=== PATIENT | male | born 1955 | race Caucasian/White ===

== ENCOUNTER → 2020-01-06 12:11 | Outpatient (CLI) | payer MEDICARE, OTHER, SELFPAY ==
--- NOTE | 2020-01-06 | DI.RAD.S_ITS ---
PROCEDURE: XR CHEST 2V INDICATIONS: COUGH TECHNIQUE: 2 views of the chest were acquired. COMPARISON: [facility], CT, SOFT TISSUE NECK W CONTRAST, 05/31/2017, 9:13. [facility], CR, CHEST 2 VIEW, 01/23/2012, 8:56. FINDINGS: Surgical changes and devices: None. Lungs and pleura: Nodular opacities are seen within the mid left lung, which measured 4.5 cm, when measured together. Low lung volumes are noted. This causes a crowded appearance to the lung markings and limits evaluation. No pneumothorax or pleural effusions are seen. Mediastinum: The fullness can be seen involving the right mediastinum. No mediastinal contours are otherwise unremarkable. The cardiac size is within normal limits. Bones and chest wall: No suspicious bony abnormalities. Age-appropriate bony degenerative changes are seen. Soft tissues appear unremarkable. IMPRESSION: Nodular opacities are seen along. In a patient of this age, concern is raised for neoplasm. A dedicated chest CT with contrast is now recommended for further evaluation. Fullness is seen involving the right mediastinum, which most likely relates to normal vascular structures. However, differential diagnosis would also include metastatic disease. Dictated by: Paras Gibbs M.D. on 01/06/2020 at 11:45 Approved by: Paras Gibbs M.D. on 01/06/2020 at 11:49
[2020-01-06 13:24] LABS: Add Manual Diff / Slide Review NO; Basophils Absolute Auto 100 /uL (0-100); Basophils Percent Auto 0.7 % (0-2); Eosinophils Absolute Auto 300 /uL (0-450); Eosinophils Percent Auto 3.1 % (2-4); Hematocrit 37.7 % (41-53); Lymphocytes Absolute Auto 800 /uL (1100-4500); Lymphocytes Percent Auto 9.9 % (25-40); Mean Corpuscular HGB Conc 34.6 % (30-36); Mean Corpuscular Hemoglobin 30.3 PG (26-34); Mean Corpuscular Volume 87.5 fL (80-100); Monocytes Absolute Auto 900 /uL (0-900); Monocytes Percent Auto 10.6 % (3-14); Neutrophils Absolute Auto 6200 /uL (1500-7000); Neutrophils Percent Auto 75.7 % (50-75); Platelet Count 344 X10^3/uL (150-400); Red Blood Cell Count 4.31 X10^6/uL (4.5-5.9); Red Cell Distribution Width 12.4 % (11.6-14.8); White Blood Cell Count 8.2 X10^3/uL (4.5-11.0)
[2020-01-06 13:43] LABS: Alanine Aminotransferase 16 IU/L (<50); Albumin 4.7 g/dL (3.5-5.0); Albumin Globulin Ratio 1.2 (1.0-2.8); Alkaline Phosphatase 69 U/L (38-126); Aspartate Aminotransferase 33 IU/L (17-59); BUN Creatinine Ratio 11.9 (6-22); Bilirubin Total 0.5 mg/dL (0.2-1.3); Blood Urea Nitrogen 15 mg/dL (9-20); C-Reactive Protein Quant 3.3 mg/dL (<1.0); Calcium 10.3 mg/dL (8.4-10.2); Carbon Dioxide 28 mmol/L (22-32); Chloride 94 mmol/L (98-107); Estimated Glomerular Filt Rate 57.4 mL/min (>60); Glucose 109 mg/dL (80-110); HEMOLYSIS < 15 (0-50); Potassium 4.7 mmol/L (3.4-5.1); Sodium 134 mmol/L (137-145); Total Protein 8.7 g/dL (6.3-8.2)
[2020-01-06 13:52] LABS: Erythrocyte Sedimentation Rate 43 MM/HR (0-15)
[2020-01-06 14:09] LABS: TSH w/ Reflex to FT4 6.27 uIU/mL (0.47-4.68)
== END ==
PROVIDERS: PCP Internal Medicine; Referring Provider Internal Medicine; Visit Provider Internal Medicine
DX: R05 Cough (principal); B34.9 Viral infection, unspecified; J06.9 Acute upper respiratory infection, unspecified; R63.4 Abnormal weight loss
CPT/HCPCS: 36415; 71046; 80053; 84439; 84443; 85025; 85651; 86140

== ENCOUNTER → 2020-01-08 12:08 | Outpatient (CLI) | payer MEDICARE, OTHER, SELFPAY ==
--- NOTE | 2020-01-08 | DI.CT.S_ITS ---
PROCEDURE: CT CHEST W CON INDICATIONS: COUGH. Abnormal chest x-ray. TECHNIQUE: After the administration of intravenous contrast, 5 mm thick sections acquired from the pulmonary apices to the posterior costophrenic angles. 1 mm axial lung, 5 mm thick coronal and sagittal reformats and 7 mm axial MIP were acquired. For radiation dose reduction, the following was used: automated exposure control, adjustment of mA and/or kV according to patient size. COMPARISON: [facility], CR, CHEST 2 VIEW, 01/23/2012, 8:56. [facility], CT, SOFT TISSUE NECK W CONTRAST, 05/31/2017, 9:13. [facility], CR, XR CHEST 2V, 01/06/2020, 12:20. FINDINGS: Image quality: Excellent. Lungs and pleura: 2 nodules seen involving the left lower lobe measuring 2.3 x 1.5 and 2.1 x 1.4 cm, respectively. There is a right upper lobe mass seen medially, abutting the mediastinum it measures 4.6 x 2.5 cm in greatest axial dimension, which extends inferiorly to the right perihilar region and measures approximately 9 cm craniocaudally. A portion of this masslike appearance may be related to atelectasis with collapsed lung. Within the right lower lobe, a lobulated soft tissue mass seen that measures 3.9 x 3 cm in greatest axial dimension, with a craniocaudal extent of 3.7 cm. Focal atelectasis is seen involving the right lower lobe, which is attributed to post obstructive atelectasis. Mediastinum: Enlarged abnormal right perihilar lymph nodes are seen, which measure at least 4 x 3.4 cm in greatest axial dimension. A group of abnormal lymph nodes can be seen within the right perihilar region inferiorly that measures at least 4.5 x 3.3 cm in greatest axial dimension. This group of lymph nodes narrows the right lower lobe bronchus and also narrows the right lower lobe pulmonary arteries and pulmonary veins. A group of subcarinal lymph nodes can be seen measuring 4.1 x 2.4 cm. Abnormal enlarged left perihilar lymph nodes are seen that measure 3.5 x 2.7 cm in greatest axial dimension. There is a right paratracheal group of abnormal lymph node seen that measures 3.9 x 3.2 cm. Abnormal AP window lymph nodes are seen, with the largest solitary of the measuring 2.9 x 2.1 cm. Heart size is normal. No pericardial effusion. Thoracic aorta and central pulmonary arteries are normal in size. Esophagus is normal in caliber. No hiatal hernia. Bones and chest wall: At least one remote right anterior rib fracture can be seen. Age-appropriate bony degenerative changes are seen. No suspicious bony lesions. No vertebral body compression fractures. No axillary or supraclavicular adenopathy by size criteria. Thyroid gland demonstrates no significant CT abnormality. Abdomen: There is a left adrenal mass seen and measures 3.1 x 2.5 cm in greatest axial dimension. The gallbladder is largely collapsed at the time of this study. The visualized portions of the upper abdominal structures are otherwise unremarkable for imaging technique. IMPRESSION: Extensive pulmonary metastatic disease is seen, which is more extensive than would be expected from the recent chest radiograph. Numerous enlarged mediastinal and perihilar lymph nodes are seen, which also represent metastatic disease. There is a group of right infrahilar lymph nodes seen the cause narrowing of the right lower lobe bronchus, the right lower lobe pulmonary artery, and the right upper lobe pulmonary vein. There is associated post obstructive atelectasis seen. A left adrenal mass is seen, which is attributed to an additional focus of metastatic disease. If clinically appropriate, please consider followup CT scan or percutaneous biopsy. Dictated by: Paras Gibbs M.D. on 01/08/2020 at 11:52 Approved by: Paras Gibbs M.D. on 01/08/2020 at 12:04
== END ==
PROVIDERS: PCP Internal Medicine; Referring Provider Internal Medicine; Visit Provider Internal Medicine
DX: C78.01 Secondary malignant neoplasm of right lung (principal); C78.02 Secondary malignant neoplasm of left lung; C77.1 Secondary and unspecified malignant neoplasm of intrathoracic lymph nodes; C79.72 Secondary malignant neoplasm of left adrenal gland; Z85.9 Personal history of malignant neoplasm, unspecified; J98.11 Atelectasis; R05 Cough
CPT/HCPCS: 71260; Q9967

== ENCOUNTER → 2020-04-29 09:52 | Outpatient (CLI) | payer MEDICARE, SELFPAY ==
--- NOTE | 2020-04-29 | DI.CT.S_ITS ---
PROCEDURE: CT SOFT TISSUE NECK W CON INDICATIONS: Malignant neoplasm of tonsil, unspecified TECHNIQUE: After the administration of intravenous contrast, 3.0 mm axial sections acquired from the sella to the aortic arch. Additional oblique axial 3.0 mm sections acquired through the pharynx. 3 mm thick coronal and sagittal reformats were generated. For radiation dose reduction, the following was used: automated exposure control. COMPARISON: [facility], CT, CT BIOPSY LUNG/MEDIASTINUM, 01/21/2020, 8:24. [facility], CT, CT CHEST W CON, 01/08/2020, 12:16. [place], [place], PET NECK TO MID THIGH, 11/08/2018, 8:59. [facility] CT, CT SOFT TISSUE NECK WITH CONTRAST, 08/06/2018, 11:22. [place], [place], PET NECK TO MID THIGH, 01/31/2018, 9:53. [facility] CT, CT SOFT TISSUE NECK WITH CONTRAST, 09/05/2017, 15:57. FINDINGS: Image quality: Excellent. Lymph nodes: No enlarged lymph nodes seen throughout the neck. Vessels: Visualized vasculature appears patent. Neck spaces: The oropharynx, nasopharynx, and pharynx demonstrate no mucosal lesions. The vocal cords, false vocal cords, pyriform sinuses, epiglottis, vallecula, and tongue base all appear normal. Extramucosal spaces appear unremarkable. Glands: The parotid and submandibular glands appear normal. Thyroid gland is within normal limits. Miscellaneous: There is a partially visualized enhancing mass in the right basal ganglia that measures 1.8 centimeters well of visualized. Vasogenic edema is noted adjacent to the mass Right chest wall Port-A-Cath. There is a partially visualized mass in the medial aspect of the left upper lobe abutting the superior mediastinum that measures 2.7 x 2.5 centimeters well visualized. There is a 1.5 centimeter short axis right paratracheal superior mediastinal lymph node. Superficial soft tissues appear normal. Bones: No suspicious bony lesions. Spine degenerative disc disease and facet arthropathy. Visualized sinuses and mastoids appear unremarkable. IMPRESSION: 1. No mucosal-based neck masses or neck lymphadenopathy based on size criteria. 2. Partially visualized enhancing mass in the right basal ganglia of the brain highly suspicious for metastatic disease. Recommend MRI of the brain with and without contrast for definitive characterization. 3. Partially visualized left upper lobe lung mass compatible with known metastatic disease. 4. Right paratracheal, superior mediastinal lymphadenopathy compatible with no metastatic disease. Note is decreased in size compared to prior CT scan of the chest obtained January 08, 2020. Dictated by: Orly Biswas MD, PhD on 04/29/2020 at 14:32 Approved by: Orly Biswas MD, PhD on 04/29/2020 at 14:40
[2020-04-29 11:04] LABS: BUN Creatinine Ratio 16.1 (6-22); Blood Urea Nitrogen 19 mg/dL (9-20); Estimated Glomerular Filt Rate > 60.0 mL/min (>60)
--- NOTE | 2020-04-29 11:13 | DI.CT.S_ITS ---
PROCEDURE: CT CHEST W CON INDICATIONS: Malignant neoplasm of tonsil, unspecified TECHNIQUE: After the administration of intravenous contrast, 5 mm thick sections acquired from the pulmonary apices to the posterior costophrenic angles. 1 mm axial lung, 5 mm thick coronal and sagittal reformats and 7 mm axial MIP were acquired. For radiation dose reduction, the following was used: automated exposure control, adjustment of mA and/or kV according to patient size. COMPARISON: [facility], CT, CT CHEST W CON, 01/08/2020, 12:16. FINDINGS: Image quality: Excellent. Lungs and pleura: Significant interval decrease in medial right upper lobe lung mass with contiguous right paratracheal adenopathy. On previous image 21/2, the maximum diameter of the confluent process measured 6.7 x 4.9 cm. On current image 29/2 it measures approximately 4.6 x 3.5 cm. Interval decrease in size of pleural-based posterior right lower lobe lung mass. On previous image 37/2 it measured 3.7 x 3.2 cm. On current image 43/2 it measures 2.6 x 3.0 cm. Interval decrease in the amount of collapse of the posterior right lower lobe. Reference previous image 206/3 and current image 227/3. A subpleural lung mass on previous image 179/3 in the left lower lobe previously measured 2.3 x 1.7 cm. It current measures 1.5 x 1.5 cm on current image 220/3. A right lower lobe lung mass on previous image 194/3 measured 1.8 x 2.3 cm. On current image 234/3 it measures 0.7 x 1.6 cm. Small right pleural effusion. Mediastinum: Heart size is normal. Small pericardial effusion, slightly increased. Interval decrease in mediastinal adenopathy, still significant. As stated above, the right paratracheal adenopathy confluent with the medial right upper lobe lung mass has decreased in size. Interval decrease in bilateral hilar adenopathy. Subcarinal adenopathy is stable. Adenopathy compressing the posterior and left side of the left atrium is again noted. This adenopathy narrows encases the right middle lobe and medial right lower lobe bronchi and obstructs the right lower lobe posterior basal pulmonary bronchus. It encases and narrows right lower lobe pulmonary arterial vessels and pulmonary venous vessels. Adenopathy anterior to the distal esophagus may be increased. On image 58/2 the current study it measures 2.1 x 3.4 cm. Thoracic aorta and central pulmonary arteries are normal in size. Esophagus is normal in caliber. No hiatal hernia. Bones and chest wall: No suspicious bony lesions. No vertebral body compression fractures. No axillary or supraclavicular adenopathy by size criteria. Thyroid gland is unremarkable as visualized. Abdomen: A metastatic lesion to the left adrenal is increased in size. On previous image 63/2 it measured 2.7 x 2.6 cm. On current image 72/2 it measures 3.3 x 3.4 cm. A portacaval lymph node has increased in size. On previous image 63/2 and measures approximately 0.8 x 1.0 cm. On current image 71/2 of measures 1.7 x 1.6 cm. IMPRESSION: 1. Significant interval decrease in size of multiple pulmonary masses. 2. Interval decrease in the amount of right lower lobe which has collapsed. 3. Overall decrease in the amount of mediastinal adenopathy. Compression on the left atrium and encasement of right-sided bronchi and right pulmonary arterial and venous vessels is again noted. 4. Definite interval increase in a left adrenal metastatic lesion and interval increase in size of a portacaval lymph node. Only the upper abdomen has been imaged in this study. Dictated by: Mike Grewal M.D. on 04/29/2020 at 12:27 Approved by: Mike Grewal M.D. on 04/29/2020 at 12:54
== END ==
PROVIDERS: PCP Internal Medicine; Referring Provider Internal Medicine Hematology & Oncology; Visit Provider Internal Medicine Hematology & Oncology
DX: C09.9 Malignant neoplasm of tonsil, unspecified (principal); C78.01 Secondary malignant neoplasm of right lung; C78.02 Secondary malignant neoplasm of left lung; C79.72 Secondary malignant neoplasm of left adrenal gland; G93.9 Disorder of brain, unspecified; D38.3 Neoplasm of uncertain behavior of mediastinum; R59.0 Localized enlarged lymph nodes; Z95.828 Presence of other vascular implants and grafts
CPT/HCPCS: 70491; 71260; 82565; 84520; Q9967

== ENCOUNTER → 2020-04-29 10:05 | Outpatient (CLI) | payer MEDICARE, SELFPAY ==
[2020-04-29 11:47] LABS: Free T4, Direct Thyroxine 0.92 ng/dL (0.78-2.19)
[2020-04-29 12:01] LABS: Thyroid Stimulating Hormone 7.23 uIU/mL (0.47-4.68)
[2020-04-30 08:11] LABS: Triiodothyronine T3 Total 109 ng/dL (71-180)
== END ==
PROVIDERS: PCP Internal Medicine; Referring Provider Internal Medicine; Visit Provider Internal Medicine
DX: E03.9 Hypothyroidism, unspecified (principal)
CPT/HCPCS: 36415; 84439; 84443; 84480

== ENCOUNTER → 2020-05-07 08:13 | Outpatient (CLI) | payer MEDICARE, SELFPAY ==
--- NOTE | 2020-05-07 | DI.MRI.S_ITS ---
PROCEDURE: MR HEAD/BRAIN WO/W CON INDICATIONS: Other specified disorders of brain TECHNIQUE: Noncontrast axial T1 spin echo, axial T2 fast spin echo, sagittal and axial FLAIR, coronal T2 fast spin echo, axial gradient echo, axial diffusion and ADC through the brain. After the administration of contrast, axial and coronal T1 spin echo with fat saturation through the brain. COMPARISON: [facility], CT, CT SOFT TISSUE NECK W CON, 04/29/2020, 11:12. [facility], CT, CT CHEST W CON, 04/29/2020, 11:12. [facility], CT, SOFT TISSUE NECK W CONTRAST, 05/31/2017, 9:13. FINDINGS: Image quality: Excellent. CSF spaces: Basal cisterns are patent. No extra-axial fluid collections. No hydrocephalus is seen. There is mild effacement of the right lateral ventricle. Brain: As seen on the recent prior CT of the neck, there is enhancing mass seen on the right. This is centered posterior insula and measures 2.2 x 2.2 cm greatest axial, extent 2.3 cm. There is heterogeneous enhancement, with rim enhancing. Surrounding prominent vasogenic edema is seen. Mild mass effect is seen, with a 4 mm of midline shift and partial effacement the right lateral ventricle. Additional smaller enhancing nodules are seen: Left posterior cerebellum, 4 mm, series 13 image 43. Right occipital lobe, 5-6 mm, series 3, image 79 Anterior right basal ganglia, 6 mm, series 13 image 97. Periventricular white left anteriorly, 4-5 mm, series 13, image 103. Right periventricular frontal lobe white matter superiorly, 4-5 mm, series 13, image 115. No intracranial hemorrhage is seen. There is cerebral volume loss for age. There is periventricular white matter chronic small vessel ischemic change. The brainstem appears normal. Diffusion-weighted images demonstrate no acute ischemic insults. No chronic ischemic insults. Normal intravascular flow voids are present. Skull and face: Calvarial marrow is normal in signal. Orbits appear normal. Sinuses: Sinuses and mastoids appear clear. IMPRESSION: Metastatic disease, with 6 enhancing nodules seen, with the largest centered within the posterior right insula measuring up to 2.3 cm. Mass effect is associated with the largest nodule, with partial effacement of the right lateral ventricle and 4 mm midline shift. Dictated by: Paras Gibbs M.D. on 05/07/2020 at 8:23 Approved by: Paras Gibbs M.D. on 05/07/2020 at 8:37
== END ==
PROVIDERS: PCP Internal Medicine; Referring Provider Internal Medicine; Visit Provider Internal Medicine Hematology & Oncology
DX: G93.89 Other specified disorders of brain (principal); C09.9 Malignant neoplasm of tonsil, unspecified; C79.31 Secondary malignant neoplasm of brain; C78.01 Secondary malignant neoplasm of right lung; C78.02 Secondary malignant neoplasm of left lung
CPT/HCPCS: 70553

== ENCOUNTER → 2020-06-15 11:19 | Outpatient (CLI) | payer MEDICARE, SELFPAY ==
[2020-06-15 11:59] LABS: Add Manual Diff / Slide Review NO; Basophils Absolute Auto 100 /uL (0-100); Basophils Percent Auto 1.1 % (0-2); Eosinophils Absolute Auto 500 /uL (0-450); Eosinophils Percent Auto 10.4 % (2-4); Hematocrit 36.8 % (41-53); Hemoglobin 12.9 g/dL (13.5-17.5); Lymphocytes Absolute Auto 400 /uL (1100-4500); Lymphocytes Percent Auto 8.5 % (25-40); Mean Corpuscular HGB Conc 35.1 % (30-36); Mean Corpuscular Hemoglobin 32.7 PG (26-34); Mean Corpuscular Volume 93.3 fL (80-100); Monocytes Absolute Auto 500 /uL (0-900); Monocytes Percent Auto 9.5 % (3-14); Neutrophils Absolute Auto 3400 /uL (1500-7000); Neutrophils Percent Auto 70.5 % (50-75); Platelet Count 277 X10^3/uL (150-400); Red Blood Cell Count 3.95 X10^6/uL (4.5-5.9); Red Cell Distribution Width 12.4 % (11.6-14.8); White Blood Cell Count 4.8 X10^3/uL (4.5-11.0)
[2020-06-15 12:15] LABS: Alanine Aminotransferase 12 IU/L (<50); Albumin 4.5 g/dL (3.5-5.0); Albumin Globulin Ratio 1.2 (1.0-2.8); Alkaline Phosphatase 74 U/L (38-126); Aspartate Aminotransferase 27 IU/L (17-59); BUN Creatinine Ratio 12.1 (6-22); Bilirubin Total 0.5 mg/dL (0.2-1.3); Blood Urea Nitrogen 15 mg/dL (9-20); Carbon Dioxide 28 mmol/L (22-32); Chloride 94 mmol/L (98-107); Estimated Glomerular Filt Rate 58.5 mL/min (>60); Globulin 3.9 g/dL (1.7-4.1); Glucose 126 mg/dL (80-110); HEMOLYSIS < 15 (0-50); Potassium 4.7 mmol/L (3.4-5.1); Sodium 133 mmol/L (137-145); Total Protein 8.4 g/dL (6.3-8.2)
== END ==
PROVIDERS: PCP Internal Medicine; Referring Provider Internal Medicine Hematology & Oncology; Visit Provider Internal Medicine Hematology & Oncology
DX: C78.01 Secondary malignant neoplasm of right lung (principal); C78.02 Secondary malignant neoplasm of left lung; C09.9 Malignant neoplasm of tonsil, unspecified
CPT/HCPCS: 36415; 80053; 85025

== ENCOUNTER → 2020-06-16 08:28 | Outpatient (CLI) | payer MEDICARE, SELFPAY ==
--- NOTE | 2020-06-16 | DI.CT.S_ITS ---
PROCEDURE: CT CHEST ABD PEL W CON INDICATIONS: Bilat pulmonary metastases TECHNIQUE: After the administration of oral and intravenous contrast, 5 mm thick sections acquired from the lung apices to the symphysis. 5 mm coronal and sagittal reformats were performed, with additional 7 mm coronal MIP reformats through the lungs. For radiation dose reduction, the following was used: automated exposure control, adjustment of mA and/or kV according to patient size. COMPARISON: [facility], CT, CT BIOPSY LUNG/MEDIASTINUM, 01/21/2020, 8:24. [facility], CT, CT CHEST W CON, 01/08/2020, 12:16. [place], [place], PET NECK TO MID THIGH, 11/08/2018, 8:59. [facility], CT, CT SOFT TISSUE NECK WITH CONTRAST, 08/06/2018, 11:22. [place], PET NECK TO MID THIGH, 01/31/2018, 9:53. [facility], CT, CT SOFT TISSUE NECK WITH CONTRAST, 09/05/2017, 15:57. [facility], CT, CT SHARPE, 09/05/2017, 15:40. [place], PET NECK TO MID THIGH, 08/03/2017, 9:18. CT, CT ABDOMEN PELVIS WITH CONTRAST, 07/08/2017, 10:27. [facility], CT, CT CHEST W CON, 04/29/2020, 11:12. FINDINGS: Image quality: Excellent. CHEST: Lungs and pleura: No pneumothorax . There is a trace right pleural effusion with adjacent atelectasis. Redemonstration of dominant right lower lobe masslike consolidation is again noted with interval increase in along the periphery, for example image 217/3 compared to prior study image 234/3. Currently this measures 8.8 x 6.7 cm on axial image 219/3. There is also interval progression in abnormal soft tissue in bronchovascular distribution seen on image 1 and 1/3. Interval progression/development of multiple subcentimeter medial left lower lobe pulmonary nodules the largest of which seen on image 294/3 measuring 1.0 x 0.9 cm. Left subpleural posterior nodule unchanged on image 218/3. Possible slight improvement 2 stable appearance of ill-defined right upper lobe and paramediastinal spiculated nodular soft tissue since the prior study. There is diffuse airway thickening, and narrowing of the right bronchi with unchanged appearance since the prior study . Mediastinum: Heart size is normal. Mild pericardial effusion. Extensive right paratracheal, subcarinal bilateral hilar lymphadenopathy which is stable to slightly progressed since the prior study. Numerous gastroesophageal lymph nodes also again noted. Thoracic aorta and central pulmonary arteries are normal in size. Esophagus is normal in caliber. No hiatal hernia. Interval enlargement of a right axillary lymph node now measuring 3.6 x 2.6 cm, previously 1.9 x 1.9 cm. Thyroid gland negative . ABDOMEN: Solid organs: Liver is normal in size and enhancement. Gallbladder negative . Biliary system is non dilated. Numerous enlarged periportal lymph nodes Pancreas enhances normally. Spleen is normal in size and enhancement. Left adrenal metastasis measuring 4.1 x 4.9 cm, previously 3.5 x 3.1 cm Kidneys demonstrate normal size and enhancement, without hydronephrosis. Peritoneum and bowel: Bowel loops demonstrate normal wall thickness and caliber. No free fluid or air. Nodes and vessels: No retroperitoneal or mesenteric adenopathy by size criteria. Aorta and inferior vena cava are normal in size. Miscellaneous: No ventral hernias. PELVIS: Genitourinary: Bladder wall thickness is normal. Miscellaneous: No inguinal hernias or adenopathy. Bones: No vertebral body compression fracture. Spondylytic changes and facet arthropathy. IMPRESSION: Progressive metastatic disease in particular involving the right axilla lymphadenopathy, dominant right lower lobe mass (and probable lymphovascular spread of tumor) as well as multiple new small pulmonary nodules in the medial left lung base. Additional slight interval progression in left adrenal metastasis. Additional chronic and incidental findings as above. Dictated by: Jhony Neil M.D. on 06/16/2020 at 11:27 Approved by: Jhony Neil M.D. on 06/16/2020 at 11:46
--- NOTE | 2020-06-16 09:07 | DI.CT.S_ITS ---
PROCEDURE: CT SOFT TISSUE NECK W CON INDICATIONS: Bilat pulmonary metastases TECHNIQUE: After the administration of intravenous contrast, 3.0 mm axial sections acquired from the sella to the aortic arch. Additional oblique axial 3.0 mm sections acquired through the pharynx. 3 mm thick coronal and sagittal reformats were generated. For radiation dose reduction, the following was used: automated exposure control. COMPARISON: [facility], MR, MR HEAD/BRAIN WO/W CON, 05/07/2020, 8:27. [facility], CT, CT SOFT TISSUE NECK WITH CONTRAST, 08/06/2018, 11:22. [facility], CT, CT SOFT TISSUE NECK WITH CONTRAST, 09/05/2017, 15:57. [facility], CT, SOFT TISSUE NECK W CONTRAST, 05/31/2017, 9:13. [facility], CT, CT CHEST ABD PEL W CON, 06/16/2020, 9:21. [facility], CT, CT SOFT TISSUE NECK W CON, 04/29/2020, 11:12. FINDINGS: Image quality: Excellent. Lymph nodes: Bilateral enlarged supraclavicular lymph nodes are seen. The largest right supraclavicular lymph node measures 2.7 x 2.1 cm. The largest left supraclavicular lymph node measures 1.8 x 1.7 cm. There is partial visualization abnormally enlarged mediastinal lymph nodes. Vessels: Visualized vasculature appears patent. Atherosclerotic calcification is noted. Neck spaces: The oropharynx, nasopharynx, and pharynx demonstrate no mucosal lesions. The vocal cords, false vocal cords, pyriform sinuses, epiglottis, vallecula, and tongue base all appear normal. Extramucosal spaces appear unremarkable. Glands: The parotid and submandibular glands appear normal. Thyroid gland demonstrates no significant abnormality. Miscellaneous: Visualized brain and orbits appear normal. There is a faintly seen left upper lobe pulmonary nodule, as on series 3, image 19 measuring 6 mm. Superficial soft tissues appear normal. A right-sided chest port is seen. The patient's known intracranial metastatic disease is partially seen, including a right insular lesion that measures up to 2.2 cm. Bones: No suspicious bony lesions. Visualized sinuses and mastoids appear unremarkable. IMPRESSION: Enlarged supraclavicular lymph nodes are seen, which are increased in size compared to the prior examination. Intracranial metastatic disease and mediastinal metastatic disease is partially seen. Faintly seen left upper lobe pulmonary nodule noted. Incidental note is made of: Right-sided chest port Dictated by: Paras Gibbs M.D. on 06/16/2020 at 10:43 Approved by: Paras Gibbs M.D. on 06/16/2020 at 10:49
== END ==
PROVIDERS: Referring Provider Internal Medicine Hematology & Oncology; Visit Provider Internal Medicine Hematology & Oncology
DX: C09.9 Malignant neoplasm of tonsil, unspecified (principal); C78.02 Secondary malignant neoplasm of left lung; C78.01 Secondary malignant neoplasm of right lung; C77.3 Secondary and unspecified malignant neoplasm of axilla and upper limb lymph nodes; C79.31 Secondary malignant neoplasm of brain; C78.1 Secondary malignant neoplasm of mediastinum; R59.0 Localized enlarged lymph nodes; Z95.828 Presence of other vascular implants and grafts
CPT/HCPCS: 70491; 71260; 74177; Q9967